=== PATIENT | female | born 1990 | race Caucasian/White ===

== ENCOUNTER 2016-06-18 14:27 | Outpatient (CLI) | payer OTHER, MEDICAID ==
[2016-07-24] MEDS ORDERED: COLACE-DPS100 MG PO (16:37)
[2016-07-24] MEDS ORDERED: PRILOSEC DPS20 MG PO (16:37)
[2016-07-24] MEDS ORDERED: PRENATAL VIT1 TAB PO (16:37)
[2016-07-24] MEDS ORDERED: MYLICON DPS80 MG PO (16:37)
[2016-07-24] MEDS ORDERED: MOTRIN-DPS800 MG PO (16:38)
[2016-07-24] MEDS ORDERED: NIPPLECREAM TP (16:38)
[2016-07-24] MEDS ORDERED: LAN-O-SOOTHE7 GM TP (16:38)
[2016-07-24] MEDS ORDERED: PERCOCET 5 DPS1 TAB PO (16:38)
[2016-08-01] MEDS ORDERED: AMOXICILLIN875 MG PO (07:52)
== END 2016-06-18 16:00 | disposition home or self-care (01) ==
LOC: BC 14:27 → 2LDRP 14:27 → BC 16:00
DX: O99.89 Other specified diseases and conditions complicating pregnancy, childbirth and the puerperium (principal); M54.5 Low back pain; Z3A.33 33 weeks gestation of pregnancy

== ENCOUNTER 2016-06-28 04:00 | Outpatient (CLI) | payer OTHER, MEDICAID ==
[2016-07-24] MEDS ORDERED: PRILOSEC DPS20 MG PO (16:37)
[2016-07-24] MEDS ORDERED: COLACE-DPS100 MG PO (16:37)
[2016-07-24] MEDS ORDERED: PRENATAL VIT1 TAB PO (16:37)
[2016-07-24] MEDS ORDERED: MYLICON DPS80 MG PO (16:37)
[2016-07-24] MEDS ORDERED: LAN-O-SOOTHE7 GM TP (16:38)
[2016-07-24] MEDS ORDERED: PERCOCET 5 DPS1 TAB PO (16:38)
[2016-07-24] MEDS ORDERED: MOTRIN-DPS800 MG PO (16:38)
[2016-07-24] MEDS ORDERED: NIPPLECREAM TP (16:38)
[2016-08-01] MEDS ORDERED: AMOXICILLIN875 MG PO (07:52)
== END 2016-06-28 07:32 | disposition home or self-care (01) ==
LOC: 2LDRP 04:00 → BC 04:00
DX: O47.03 False labor before 37 completed weeks of gestation, third trimester (principal); Z3A.34 34 weeks gestation of pregnancy

== ENCOUNTER 2016-07-02 18:15 | Outpatient (CLI) | payer OTHER, MEDICAID ==
[2016-07-24] MEDS ORDERED: COLACE-DPS100 MG PO (16:37)
[2016-07-24] MEDS ORDERED: PRILOSEC DPS20 MG PO (16:37)
[2016-07-24] MEDS ORDERED: MYLICON DPS80 MG PO (16:37)
[2016-07-24] MEDS ORDERED: PRENATAL VIT1 TAB PO (16:37)
[2016-07-24] MEDS ORDERED: PERCOCET 5 DPS1 TAB PO (16:38)
[2016-07-24] MEDS ORDERED: LAN-O-SOOTHE7 GM TP (16:38)
[2016-07-24] MEDS ORDERED: MOTRIN-DPS800 MG PO (16:38)
[2016-07-24] MEDS ORDERED: NIPPLECREAM TP (16:38)
[2016-08-01] MEDS ORDERED: AMOXICILLIN875 MG PO (07:52)
== END 2016-07-02 20:40 | disposition home or self-care (01) ==
LOC: 2LDRP 18:15 → WOR 18:15 → BC 18:15 → 2LDRP 20:40 → BC 20:40
DX: O36.8130 Decreased fetal movements, third trimester, not applicable or unspecified (principal); O99.89 Other specified diseases and conditions complicating pregnancy, childbirth and the puerperium; R10.9 Unspecified abdominal pain; Z3A.35 35 weeks gestation of pregnancy

== ENCOUNTER 2016-07-11 21:25 | Observation (INO) | payer OTHER, MEDICAID ==
[2016-07-24] MEDS ORDERED: PRENATAL VIT1 TAB PO (16:37)
[2016-07-24] MEDS ORDERED: PRILOSEC DPS20 MG PO (16:37)
[2016-07-24] MEDS ORDERED: COLACE-DPS100 MG PO (16:37)
[2016-07-24] MEDS ORDERED: MYLICON DPS80 MG PO (16:37)
[2016-07-24] MEDS ORDERED: LAN-O-SOOTHE7 GM TP (16:38)
[2016-07-24] MEDS ORDERED: PERCOCET 5 DPS1 TAB PO (16:38)
[2016-07-24] MEDS ORDERED: MOTRIN-DPS800 MG PO (16:38)
[2016-07-24] MEDS ORDERED: NIPPLECREAM TP (16:38)
[2016-08-01] MEDS ORDERED: AMOXICILLIN875 MG PO (07:52)
== END 2016-07-12 12:35 | disposition home or self-care (01) ==
LOC: BC 21:25 → 2LDRP 21:25 → BC 08-06 07:19
PROVIDERS: ADMIT Family Medicine
DX: O47.03 False labor before 37 completed weeks of gestation, third trimester (principal); O24.419 Gestational diabetes mellitus in pregnancy, unspecified control; Z3A.36 36 weeks gestation of pregnancy; E66.9 Obesity, unspecified; F17.210 Nicotine dependence, cigarettes, uncomplicated

== ENCOUNTER 2016-07-14 23:10 | Outpatient (CLI) | payer OTHER, MEDICAID ==
[2016-07-24] MEDS ORDERED: PRENATAL VIT1 TAB PO (16:37)
[2016-07-24] MEDS ORDERED: PRILOSEC DPS20 MG PO (16:37)
[2016-07-24] MEDS ORDERED: COLACE-DPS100 MG PO (16:37)
[2016-07-24] MEDS ORDERED: MYLICON DPS80 MG PO (16:37)
[2016-07-24] MEDS ORDERED: LAN-O-SOOTHE7 GM TP (16:38)
[2016-07-24] MEDS ORDERED: MOTRIN-DPS800 MG PO (16:38)
[2016-07-24] MEDS ORDERED: PERCOCET 5 DPS1 TAB PO (16:38)
[2016-07-24] MEDS ORDERED: NIPPLECREAM TP (16:38)
[2016-08-01] MEDS ORDERED: AMOXICILLIN875 MG PO (07:52)
== END 2016-07-15 03:00 | disposition home or self-care (01) ==
LOC: 2LDRP 23:10 → BC 23:10 → 2LDRP 07-15 03:00 → BC 08-06 08:10
DX: O47.03 False labor before 37 completed weeks of gestation, third trimester (principal); Z3A.36 36 weeks gestation of pregnancy

== ENCOUNTER 2016-07-28 15:15 | Observation (INO) | payer OTHER, MEDICAID ==
[~2016-07-28] VITALS: Ht 170.2 cm; Wt 120.0 kg
[~2016-07-28 15:15] MED LIST: COLACE-DPS100 MG PO; LAN-O-SOOTHE7 GM TP; MOTRIN-DPS800 MG PO; MYLICON DPS80 MG PO; NIPPLECREAM TP; PERCOCET 5 DPS1 TAB PO; PRENATAL VIT1 TAB PO; PRILOSEC DPS20 MG PO
[2016-08-01] MEDS ORDERED: AMOXICILLIN875 MG PO (07:52)
--- NOTE | 2016-08-03 09:09 | HP ---
ADMIT: 07/28/2016 RM/LOC: 626 [facility] MR#: [id number] 2620 [facility] [address] [place] [id number] TIA TOROELLE [place] [address] History and Physical SEX: F AGE: 26 : 1990 DATE OF SERVICE: CHIEF COMPLAINT: Fever and redness around her incision. HISTORY OF PRESENT ILLNESS: The patient is a 26-year-old, white female, 1, now para 1 female, who is 7 days out from a delivery. She was delivered via for failure to progress during labor. Came in with premature rupture of membranes but failed to dilate further with augmentation with Pitocin. She was in labor for 24 hours with minimal cervical change before taking her to . Never had any fever during labor though. She did fine after her surgery with no complications. Three days ago when I checked her in the office, the incision looked fine and there was no surrounding redness or tenderness, just normal postop soreness. Then yesterday, she says it started becoming more tender and more red and she felt much hotter and sweating a lot. She did not check her temperature at home, but today in the office, her temp was a 100.2. She says the wound has been weeping more, both wound edges, though was not purulent. PAST MEDICAL HISTORY: The patient has no chronic medical issues. Her was complicated by gestational diabetes that was well controlled with insulin therapy. She is also a smoker. She has had the but no other surgeries. MEDICATIONS: 1. vitamin daily. 2. Ferrous sulfate 325 mg daily. 3. Motrin 800 mg q.8 hours p.r.n. pain. 4. Colace [address] Mason's Nipple Cream. ALLERGIES: LATEX AND TOMATO. FAMILY HISTORY: Significant for cancer in her mother and paternal grandmother, and she has two sisters with asthma. Also, has a sister with type 2 diabetes and both her sisters had preeclampsia during . SOCIAL HISTORY: The patient is . Had been smoking about a 4th of a pack of cigarettes daily towards the end of her and is about the same now. No drug use or alcohol use. REVIEW OF SYSTEMS: CONSTITUTIONAL: Just a feverish feeling and some chills. HEENT: No headaches or vision changes. CARDIAC: No chest pain or palpitations. RESPIRATORY: No shortness of breath or cough. GASTROINTESTINAL: No nausea or vomiting. Has had some constipation issues. GENITOURINARY: Just a delivery week ago as described above. Her bleeding, she reports, is light. No other foul vaginal discharge. Rest of review of systems is negative. ADMIT: 07/28/2016 RM/LOC: 626 [facility] MR#: [id number] [address] [address] JANETT TORO [address] [place] [address] History and Physical SEX: F AGE: 26 : 1990 PHYSICAL EXAMINATION: VITAL SIGNS: Temp is 100.2 in our office, blood pressure 144/80, pulse 107, sats are 100% on room air. GENERAL: The patient is alert and oriented, in no acute distress. Oropharynx looks moist. NECK: Supple with no lymphadenopathy. HEART: Regular but tachycardic. No murmurs. LUNGS: Sound clear to auscultation bilaterally. ABDOMEN: Soft, obese, and is tender in the lower abdomen below the umbilicus. Her abdomen is pink to light red from about 3 inches above her incision to about an inch below the incision. She has some edematous change to the whole area. There is some weeping on both sides of the incision but nothing that looks purulent, and I did probe both sides of the incision where she was having more drainage and no sinus tract is noted without any further purulent drainage. EXTREMITIES: Have 1+ edema bilaterally. No posterior calf tenderness. She has 2+ dorsalis pedis pulses. No other rashes elsewhere. No focal neurologic changes. LABORATORY DATA: Her white count in the office was 15.1 with 4 bands. Hemoglobin 9.3. ASSESSMENT: 1. Postop wound infection with some cellulitis or panniculitis. 2. Postop from section 7 days ago. 3. Gestational diabetes, insulin controlled. 4. Obesity. 5. Smoker. 6. Anemia of acute blood loss. PLAN: We will admit and start IV antibiotics and hydrate lightly. We will check blood cultures, and I checked a wound culture in the office where we sent to the hospital to be run. Starting her on vancomycin and cefoxitin for now and can adjust if needed at the discretion of her OB consult. We will also keep her on Percocet and ibuprofen for pain and Colace and Dulcolax as needed for constipation. We will monitor her sugars and try to keep those under good control as well. We will make any changes if needed based on her clinical course. Hilda Blandon MD/ krystyna JOB #: [id number] CC: Hilda Blandon, Attending Physician Hilda Blandon, Family Physician
--- NOTE | 2016-08-09 09:07 | DS ---
ADMIT: 07/28/2016 RM/LOC: 626 [facility] MR#: [id number] [address] [address] TIA TOROELLE Mindy [address] [place] [id number] General Discharge Summary SEX: F AGE: 26 : 1990 ADMISSION DATE: 07/28/2016 DISCHARGE DATE: 07/31/2016 FINAL DIAGNOSES: 1. Postoperative wound infection following a delivery. 2. Gestational diabetes with some persistent hyperglycemia. 3. Panniculitis. 4. Obesity. 5. Smoker. 6. Anemia of iron deficiency and acute blood loss. REASON FOR ADMISSION: The patient was in for a followup wound check on 07/28 when she was noted to have some extensive erythema over the pannus and firmness all around the incision. She had been starting to feel worse and was running a temp of a 100.2. Her white count was 15.5. Given the extensive mild erythema, but area involved was felt best to start with inpatient treatment with IV antibiotics and OB consult. HOSPITAL COURSE: The patient was admitted and started on vancomycin with a recent hospitalization along with cefoxitin. Blood cultures were drawn. She was started on some IV fluids and Lovenox for DVT prophylaxis. Did monitor sugars and those remained good during her stay, and she never did require any p.r.n. insulin. Wound Care saw the patient along with OB and felt like opening up the incision and placing a wound VAC would be appropriate. This was performed in the evening of 07/28. She did gradually improve after that. Infectious Disease saw her on 07/29 and recommended adding Unasyn so that was initiated as well. She remained afebrile for the rest of her stay. Her final wound culture did show Gram positives with prevotella. Did have a positive beta-lactamase screen. She was approved for a wound VAC and was allowed to discharge on 07/31/2016, with close followup. Will be discharged on Augmentin 875 b.i.d. for 2 weeks, and I did get her wound culture back later that day and added clindamycin 150 mg t.i.d. for 1 week as well. Wound Care will follow and replace the wound VAC as an outpatient on 08/01. She will follow up with me on 08/02 or sooner if needed. She will continue on her home vitamins, Percocet, and ferrous sulfate 325 mg b.i.d. Hilda Blandon MD/ krystyna JOB #: [id number] CC: Hilda Blandon MD, Attending Physician Hilda Blandon MD, Family Physician
--- NOTE | 2016-08-09 11:31 | CO ---
ADMIT: 07/28/2016 RM/LOC: 626 [facility] MR#: [id number] [address] [address] JANETT REDDING [address] [place] [id number] Consultation SEX: F AGE: 26 : 1990 DATE OF CONSULTATION: 07/30/2016 ATTENDING PHYSICIAN: Hidla Blandon CONSULTING PHYSICIAN: Griselda Muir MD REASON FOR CONSULT: Antibiotic management. Thank you, Dr. Muller, for the consult and involving me in this patient's care. HISTORY OF PRESENT ILLNESS: Ms. Redding is a 26-year-old woman 1, para 1 who underwent a low-transverse section secondary to arrest of dilatation on July 21, 2016. At her followup visit for incision check, her incision was healing well. Around one week later, she developed increased redness, swelling, and reported foul-smelling drainage. She was again seen by her primary care provider Dr. Blandon who admitted her to the hospital for IV antibiotics. She was started on cefoxitin and IV vancomycin. She reports mild improvement since starting IV antibiotics, but still has diffuse cellulitis and now has a wound VAC on at the incision site. PAST MEDICAL HISTORY: Hypertension, gestational diabetes, asthma, history of depression, and tobacco use. ALLERGIES: NO KNOWN DRUG ALLERGIES. CURRENT MEDICATIONS: Include: 1. Colace. 2. Feosol. 3. MiraLax. 4. Motrin. 5. Lovenox. 6. Insulin sliding scale. 7. Cefoxitin 2 g q.6 hours. 8. Vancomycin 1.75 g q.12 hours. PAST SURGICAL HISTORY: Tonsillectomy, adenoidectomy, and . SOCIAL HISTORY: She is . Lives at home with her . Smokes 1 packet which lasts her for 3 days. Denies any alcohol or recreational drug use. FAMILY HISTORY: Significant for cancer in her mother and asthma in her sister. REVIEW OF SYSTEMS: A 10-point review of systems negative except as mentioned in HPI. PHYSICAL EXAMINATION: VITAL SIGNS: Current temperature 98.3, heart rate 75, ADMIT: 07/28/2016 RM/LOC: 626 [facility] MR#: [id number] [address] [address] JANETT REDDING [address] [place] [address] Consultation SEX: F AGE: 26 : 1990 respirations 18, blood pressure 139/88, and 97% on room air. GENERAL: No acute distress. HEENT: Head, normocephalic and atraumatic. Extraocular movements intact. LYMPH: No palpable anterior/posterior cervical or supraclavicular lymphadenopathy. CHEST: Clear to auscultation bilaterally anteriorly. CARDIOVASCULAR: S1 and S2 heard. Regular rate and rhythm. ABDOMEN: Soft, obese. SKIN: There is diffuse erythema of the lower abdomen at around her incision site. There is a wound VAC placed at the incision. Mild diffuse tenderness to palpation. PSYCH: Normal affect. Memory intact. EXTREMITIES: No peripheral edema. LABORATORY DATA: Reveal WBC count is 12.5, hemoglobin 8.5, and platelets 375. BMP shows potassium of 3.6 and creatinine 1.2. Blood cultures are no growth to date. Wound cultures are growing multiple organisms, mainly gram-positive. ASSESSMENT AND PLAN: 1. section incision site cellulitis and possible abscess. Her culture is growing polymicrobial ananda and possible anaerobes. She currently has wound VAC on. The patient reported foul-smelling drainage at home, hence we will cover her for anaerobes. I will stop the cefoxitin and change to ampicillin/sulbactam IV 3 g every 6 hours for better anaerobic coverage. Continue vancomycin for now. We will narrow the antibiotics once wound cultures are finalized. Her blood cultures are negative so far. 2. Status post section postop day 9. 3. Obesity. 4. Elevated creatinine. We will check again tomorrow and hold her ibuprofen for now. 5. Gestational diabetes. 6. Tobacco use. Thank you for the consult and I will continue to follow the patient. Griselda Muir MD/ krystyna JOB #: [id number] CC: Hilda Blandon, Attending Physician Hilda Blandon, Family Physician
--- NOTE | 2016-08-15 09:37 | CO ---
ADMIT: 07/28/2016 RM/LOC: 626 MR#: [id number] [address] [address] [place] [address] Consultation SEX: F AGE: 26 : 1990 DATE OF CONSULTATION: 07/28/2016 ATTENDING PHYSICIAN: Hilda Blandon CONSULTING PHYSICIAN: Magdalene Sadler MD REASON FOR CONSULTATION: Postoperative wound infection. HISTORY OF PRESENT ILLNESS: This is a 26-year-old female, 1, para 1, who is postoperative day #7 status post low transverse section secondary to arrest of dilation. She reports being evaluated Sunday in the office for an incision check, and at that time, her incision was healing well. She subsequently developed increasing redness, a small amount of drainage from her incision, and she noticed a foul odor. She was seen and evaluated by her primary care and OB provider, Dr. Blandon, at which time, she was then sent over for observation and IV antibiotics secondary to wound infection and cellulitis. Additionally, she does complain of right-sided pain. Her was complicated by obesity, tobacco use, and gestational diabetes mellitus that required insulin. PAST MEDICAL HISTORY: She denies hypertension, diabetes outside of , asthma, kidney, or thyroid disease. She does have a history of depression in the past. MEDICATIONS: Include: 1. vitamins. 2. Motrin 800 mg one p.o. q.8 hours p.r.n. pain. 3. Colace 100 mg p.o. b.i.d. 4. Mason's Nipple Cream p.r.n. PAST SURGICAL HISTORY: Tonsillectomy and adenoidectomy in 1994. SOCIAL HISTORY: She is . She does smoke 3-4 cigarettes a day. She denies any alcohol or drug use. ALLERGIES: TOMATOES AND LATEX. PHYSICAL EXAMINATION: VITAL SIGNS: Temperature is 97.9, pulse 75, respirations 16, blood pressure is 129/83. GENERAL: She is not in any acute distress. ABDOMEN: Soft, obese, tender in the lower portion of her abdomen. There is erythema and induration consistent with cellulitis. The incision is mostly intact. There is small amount of drainage at the left corner. I did probe this and this easily opened and drained a small pocket of foul-smelling fluid. ADMIT: 07/28/2016 RM/LOC: 626 MR#: [id number] [address] [address] JANETT TORO [address] [place] [address] Consultation SEX: F AGE: 26 : 1990 This was then packed with iodoform gauze. EXTREMITIES: Nontender. IMPRESSION: This is a 26-year-old female, 1, para 1, postoperative day #7 after a primary low transverse section with a wound infection and cellulitis. PLAN: At this time, I agree with admission for IV antibiotics. I also recommend see if Wound Care can see and evaluate the patient if possible. We will check aerobic and anaerobic cultures of her incision and see if the cellulitis and infection improves with IV antibiotics. If needed, we can always ask Infectious Disease to see and evaluate the patient as well. Magdalene Sadler MD/ krystyna JOB #: [id number] CC: Hilda Blandon, Attending Physician Hilda Blandon, Family Physician
== END 2016-07-31 17:10 | disposition home or self-care (01) ==
LOC: 6PED 15:15
PROVIDERS: ADMIT Family Medicine
DX: T81.4XXA Infection following a procedure, initial encounter (principal); E66.9 Obesity, unspecified; D64.9 Anemia, unspecified; R79.89 Other specified abnormal findings of blood chemistry; F17.210 Nicotine dependence, cigarettes, uncomplicated; I10 Essential (primary) hypertension; Z79.899 Other long term (current) drug therapy; Z98.890 Other specified postprocedural states

== ENCOUNTER 2016-09-01 11:41 | Day surgery (SDC) | payer MEDICAID ==
[~2016-09-01 11:41] MED LIST changes: +AMOXICILLIN875 MG PO
== END 2016-09-01 18:45 | disposition home or self-care (01) ==
DX: K81.1 Chronic cholecystitis (principal); F17.210 Nicotine dependence, cigarettes, uncomplicated; K21.9 Gastro-esophageal reflux disease without esophagitis; Z91.040 Latex allergy status; Z79.899 Other long term (current) drug therapy; Z98.890 Other specified postprocedural states